=== PATIENT | male | born 1960 | race African-American/Black ===

== ENCOUNTER 2018-08-21 18:57 | Emergency (ER) | payer OTHER ==
[~2018-08-21] VITALS: Ht 177.8 cm; Wt 105.0 kg
[~2018-08-21 18:57] MED LIST: AMLO10TA55 PO; ASPI-825 PO; ATEN25TA PO; CIPR-245 PO; ENAL20TA PO; GLIP10TA9 PO; LORA10TA7 PO; LORA1TAB3 PO; OMEP20CA10 PO; PRAV10TA2 PO; PSEU60TA98 PO; ROSI4TAB28 PO; TRIA1CAP4 PO; TYLENOL PO; [UNRECOGNIZED DRUG - OTHER] PO
[2018-08-21 19:23] LABS: GLUCOSE,POINT OF CARE 313 MG/DL (70-110)
[2018-08-21] MEDS ORDERED: LISI1TAB11 PO (19:23)
[2018-08-21] MEDS ORDERED: LINA5TAB PO (19:23)
[2018-08-21] MEDS ORDERED: LEVO50 PO (19:23)
[2018-08-21] MEDS ORDERED: IOVERSOL 350 MG/ML 100 ML VIAL ONE (20:47)
[2018-08-21] MEDS ORDERED: SODIUM CHLORIDE 0.9% 0 ML ONE (20:47)
[2018-08-21 21:03] LABS: BASOPHILS % (AUTO) 0.8 % (0.0-2.0); EOSINOPHILS % (AUTO) 1.9 % (1.0-6.0); HEMATOCRIT 44.4 % (41-53); HEMOGLOBIN 14.8 g/dL (13.5-17.5); LYMPHOCYTES # (AUTO) 1.6 K/uL (1.0-4.8); LYMPHOCYTES % (AUTO) 23.1 % (22.0-44.0); MEAN CORPUSCULAR HEMOGLOBIN 25.9 pg (26.0-34.0); MEAN CORPUSCULAR HGB CONC 33.4 G/dL (31.0-37.0); MEAN CORPUSCULAR VOLUME 77 fL (80-100); MONOCYTES # (AUTO) 0.5 K/uL (0.1-1.0); MONOCYTES % (AUTO) 7.1 % (2.0-9.0); NEUTROPHILS # (AUTO) 4.7 K/uL (1.8-7.7); NEUTROPHILS % (AUTO) 67.1 % (40.0-70.0); PLATELET COUNT (AUTO) 247 K/uL (150-450); RED BLOOD CELL COUNT(AUTO) 5.73 MIL/uL (4.50-5.90); RED CELL DISTRIBUTION WIDTH 14.9 % (11.5-14.5)
[2018-08-21 21:13] LABS: CALCIUM, TOTAL 9.2 mg/dL (8.8-10.5); CREATININE 1.53 mg/dL (0.60-1.30); POTASSIUM 4.1 mmol/L (3.5-5.1)
[2018-08-21 21:20] LABS: ALBUMIN 3.8 g/dL (3.4-5.0); BILIRUBIN,TOTAL 0.3 mg/dL (0.1-1.0); TOTAL PROTEIN, SERUM 7.7 g/dL (6.4-8.2)
[2018-08-21 21:42] LABS: APPEARANCE,URINE CLEAR (CLEAR); BILIRUBIN,URINE NEGATIVE (NEGATIVE); GLUCOSE, URINE (UA) >=1000 mg/dL (NEGATIVE); KETONES,URINE NEGATIVE (NEGATIVE); LEUKOCYTE ESTERASE ,URINE NEGATIVE (NEGATIVE); NITRATE,URINE NEGATIVE (NEGATIVE); OCCULT BLOOD,URINE NEGATIVE (NEGATIVE); PH,URINE 6.5 (5.0-8.0); PROTEIN,URINE NEGATIVE (NEGATIVE); UROBILINOGEN,URINE 0.2 mg/dL (<=1.0)
[2018-08-21 22:23] LABS: BACTERIA,URINE Moderate /HPF (None Seen); RBC,URINE None Seen /HPF (0-2); SQUAMOUS EPITHELIAL CELL,UR Rare /LPF (None Seen); WBC,URINE 0-2 /HPF (0-5)
[2018-08-21] MEDS: DICYCLOMINE HCL 20 MG TABLET PO ONE (23:57)
[2018-08-22 00:07] VITALS: BP 135/84
== END 2018-08-22 00:09 | disposition home or self-care (01) ==
LOC: EMS 18:58
DX: K59.00 Constipation, unspecified (principal); N39.0 Urinary tract infection, site not specified; R79.89 Other specified abnormal findings of blood chemistry; F41.9 Anxiety disorder, unspecified; E11.9 Type 2 diabetes mellitus without complications; E78.00 Pure hypercholesterolemia, unspecified; I10 Essential (primary) hypertension; E03.9 Hypothyroidism, unspecified; Z79.82 Long term (current) use of aspirin; Z79.899 Other long term (current) drug therapy
CPT/HCPCS: 74176; 87086; 99285; J7050

== ENCOUNTER 2018-09-21 10:05 | Emergency (ER) | payer OTHER ==
[~2018-09-21] VITALS: Ht 175.3 cm; Wt 100.0 kg
[~2018-09-21 10:05] MED LIST changes: -CIPR-245 PO; -ENAL20TA PO; +LEVO50 PO; +LINA5TAB PO; +LISI1TAB11 PO; -PSEU60TA98 PO; -ROSI4TAB28 PO; -TRIA1CAP4 PO; -TYLENOL PO; -[UNRECOGNIZED DRUG - OTHER] PO
[2018-09-21 10:39] LABS: GLUCOSE,POINT OF CARE 164 MG/DL (70-110)
[2018-09-21 12:11] VITALS: BP 142/77
== END 2018-09-21 12:21 | disposition home or self-care (01) ==
LOC: EMS 10:05
DX: H10.9 Unspecified conjunctivitis (principal); F41.9 Anxiety disorder, unspecified; E11.9 Type 2 diabetes mellitus without complications; E78.00 Pure hypercholesterolemia, unspecified; I10 Essential (primary) hypertension; E03.9 Hypothyroidism, unspecified; Z79.82 Long term (current) use of aspirin; Z79.84 Long term (current) use of oral hypoglycemic drugs; Z79.899 Other long term (current) drug therapy

== ENCOUNTER 2018-12-11 10:36 | Emergency (ER) | payer OTHER ==
[~2018-12-11] VITALS: Ht 177.8 cm; Wt 100.0 kg
[2018-12-11] MEDS ORDERED: METF-960 PO (10:44)
[2018-12-11 10:54] LABS: GLUCOSE,POINT OF CARE 138 MG/DL (70-110)
[2018-12-11 11:13] LABS: APPEARANCE,URINE CLOUDY (CLEAR); BILIRUBIN,URINE NEGATIVE (NEGATIVE); GLUCOSE, URINE (UA) NEGATIVE (NEGATIVE); KETONES,URINE NEGATIVE (NEGATIVE); LEUKOCYTE ESTERASE ,URINE TRACE (NEGATIVE); NITRATE,URINE NEGATIVE (NEGATIVE); OCCULT BLOOD,URINE LARGE (NEGATIVE); PROTEIN,URINE POS 1+ (NEGATIVE)
[2018-12-11 11:31] LABS: RBC,URINE 51-100 /HPF (0-2)
[2018-12-11 11:32] LABS: BACTERIA,URINE Few /HPF (None Seen); SQUAMOUS EPITHELIAL CELL,UR Few /LPF (None Seen)
[2018-12-11] MEDS ORDERED: GLIP5 PO (12:26)
[2018-12-11] MEDS ORDERED: PRAV20TA4 PO (12:26)
[2018-12-11] MEDS ORDERED: IBUPROFEN 600 MG TABLET PO ONE (12:30)
[2018-12-11 13:04] VITALS: BP 131/69
== END 2018-12-11 13:31 | disposition home or self-care (01) ==
LOC: EMS 10:37
DX: R31.9 Hematuria, unspecified (principal); F41.9 Anxiety disorder, unspecified; E11.9 Type 2 diabetes mellitus without complications; E78.00 Pure hypercholesterolemia, unspecified; I10 Essential (primary) hypertension; E03.9 Hypothyroidism, unspecified; Z79.84 Long term (current) use of oral hypoglycemic drugs; Z79.82 Long term (current) use of aspirin; Z79.899 Other long term (current) drug therapy
CPT/HCPCS: 87086